=== PATIENT | female | born 1990 | race Caucasian/White ===

== ENCOUNTER 2019-04-21 11:35 | Inpatient (IN) | payer OTHER ==
[2019-04-21] MEDS ORDERED: ELECTROLYTE-148 SOLN 1,000 ML IV SCH (12:00)
[2019-04-21] MEDS ORDERED: CITRIC ACID/SODIUM CITRATE 30 ML UNIT-DOSE CUP PO ONE (12:00)
[2019-04-21 12:42] VITALS: BMI 27.9
[2019-04-21 13:06] LABS: BASO % 0.5 % (0-2.0); EOS % 0.5 % (0-4.5); HEMATOCRIT 28.5 % (32.4-45.2); HEMOGLOBIN 9.3 GM/dL (10.7-15.3); LYMPH % 13.5 % (8-40); MCH 27.6 pg (25.7-33.7); MCHC 32.7 g/dl (32.0-36.0); MEAN CELL VOLUME 84.3 fl (80-96); MEAN PLT VOLUME 10.7 fl (7.5-11.1); MONO % 5.7 % (3.8-10.2); NEUT % 79.8 % (42.8-82.8); PLATELET COUNT 137 K/MM3 (134-434); RBC 3.38 M/mm3 (3.60-5.2); RDW 14.3 % (11.6-15.6); WHITE BLOOD COUNT 10.2 K/mm3 (4.0-10.0)
[2019-04-21] MEDS ORDERED: OXYTOCIN 20 UNITS in 0.9% NS 20 UNIT/1,000 ML INFUS.BAG IV ONE ×2 (13:06→16:11)
[2019-04-21 13:22] LABS: INR 0.97 (0.83-1.09); PROTHROMBIN TIME (PATIENT) 11.4 SEC (9.7-13.0)
[2019-04-21 13:24] LABS: ACTIVATED PTT 28.2 SECONDS (25.2-36.5); BLOOD UREA NITROGEN 6.4 mg/dL (7-18); CALCIUM 8.1 mg/dL (8.5-10.1); CREATININE 0.6 mg/dL (0.55-1.3); POTASSIUM 4.2 mmol/L (3.5-5.1)
--- NOTE | 2019-04-21 13:26 | HP ---
Past Medical History - Primary Care Physician PCP:: Pritesh Howell - Admission Chief Complaint: 39 weeks, previous c/s, labor, request repeat c/s History of Present Illness: 28 yo f g 3 p0 0 1 1 39 weeks , with previous c/s in labor , cx 4 cm 80 vx -3 mi , fhr cat 1, contraction regular q 3 min, requesting repeat c/s History Source: Patient Limitations to Obtaining History: No Limitations - Past Medical History ...: 3 ...Para: 1 ...Term: 1 ...: 0 ...Spon : 0 ...Induced : 1 ...Multiple Gestation: 0 ...EDC by [facility]: 04/28/19 Heme/Onc: Yes: Anemia - Past Surgical History Past Surgical History: Yes: Hx Myomectomy: No Hx Transabdominal Cerclage: No - Smoking History Smoking history: Never smoked Have you smoked in the past 12 months: No - Alcohol/Substance Use Hx Alcohol Use: No History of Substance Use: reports: None - Social History Usual Living Arrangement: Yes: With Spouse History of Recent Travel: No Home Medications - Allergies Allergies/Adverse Reactions: Allergies Allergy/AdvReac Type Severity Reaction Status Date / Time No Known Allergies Allergy Verified 04/21/19 12:50 - Home Medications Home Medications: Ambulatory Orders Vit No.129/Iron/Folic [ One Daily Tablet] 1 tab PO DAILY Review of Systems - Review of Systems Constitutional: reports: No Symptoms Eyes: reports: No Symptoms HENT: reports: No Symptoms Neck: reports: No Symptoms Cardiovascular: reports: No Symptoms Respiratory: reports: No Symptoms Gastrointestinal: reports: No Symptoms Genitourinary: reports: No Symptoms Breasts: reports: No Symptoms Reported Musculoskeletal: reports: No Symptoms Integumentary: reports: No Symptoms Neurological: reports: No Symptoms Endocrine: reports: No Symptoms Hematology/Lymphatic: reports: No Symptoms Psychiatric: reports: No Symptoms Physical Exam - Maternity Vital Signs: Vital Signs Temperature 98.4 F 04/21/19 12:00 Pulse Rate 90 04/21/19 12:00 Respiratory Rate 18 04/21/19 12:00 Blood Pressure 129/78 04/21/19 12:00 O2 Sat by Pulse Oximetry (%) Constitutional: Yes: Well Nourished, No Distress, Calm Eyes: Yes: WNL, Conjunctiva Clear, EOM Intact HENT: Yes: WNL, Atraumatic, Normocephalic Neck: Yes: WNL, Supple, Trachea Midline Cardiovascular: Yes: WNL, Regular Rate and Rhythm Breast(s): Yes: WNL - Abdominal Exam/OB Fundal Height: 40 Number of Fetuses: Single Presentation: Vertex Contractions: Yes Regularity: Irregular Intensity: Mod/Strong Monitor Mode: External Heart Rate Location: [facility] Category: I Accelerations: Non-Uniform Decelerations: None - Vaginal Exam/OB Vaginal Bleediing: No Speculum Exam: No Dilatation (cm): 4 cm Effacement (%): 80 Amniotic Membrane Status: Bulging Presentation: Vertex/Position Station: -3 - Physical Exam Musculoskeletal: Yes: WNL Extremities: Yes: WNL Edema: Yes Edema: LLE: Trace, RLE: Trace Deep Tendon Reflex Grade: Normal +2 ...Motor Strength: WNL Psychiatric: Yes: WNL - Labs Lab Results: CBC, BMP 04/21/19 12:40 04/21/19 12:40 Hemorrhage Risk Assessment - Risk Factors Medium Risk Factors: Yes: Prior , uterine surgery,or multiple laparotomies High Risk Factors: Yes: None Risk Score: 1 Risk Level: Medium Risk Problem List - Problems (1) with 39 completed weeks gestation Code(s): Z3A.39 - 39 WEEKS GESTATION OF (2) Previous section complicating Code(s): O34.219 - MATERNAL CARE FOR UNSP TYPE SCAR FROM PREVIOUS DEL (3) Labor established Code(s): WFE9617 - Assessment/Plan plan admit , fhm requesting repeat c/s, risks discussed
[2019-04-21] MEDS ORDERED: morphine SULFATE/PF 0.5 MG/ML (2cc Syringe - QUVA) ONE (13:45)
[2019-04-21] MEDS ORDERED: PHENYLEPHRINE HCL 10 MG/1 ML SINGLE DOSE VIAL ONE (13:58)
[2019-04-21] MEDS ORDERED: ceFAZolin SODIUM 1 GM VIAL ONE (14:00)
--- NOTE | 2019-04-21 14:50 | PN ---
Progress Note (short form) - Note Progress Note: I assisted at repeat c/section for the entirety of the case.
[2019-04-21] MEDS ORDERED: diphenhydrAMINE HCL 25 MG CAPSULE (FP) PO PRN (15:04)
[2019-04-21] MEDS ORDERED: oxyCODONE HCL 5 MG TABLET PO PRN ×2 (15:04)
[2019-04-21] MEDS ORDERED: ONDANSETRON 4 MG/2 ML VIAL IVPUSH PRN (15:04)
[2019-04-21] MEDS ORDERED: METHYLERGONOVINE MALEATE 0.2 MG/1 ML AMP IM PRN (15:04)
[2019-04-21] MEDS ORDERED: BENZOCAINE 28 GM HEMORRHOIDAL OINTMENT PR PRN (15:04)
[2019-04-21] MEDS ORDERED: WITCH HAZEL 50% (TUCKS) 40 PAD/JAR PAD TP PRN (15:04)
[2019-04-21] MEDS ORDERED: BENZOCAINE 20% 57 GM BOTTLE TP PRN (15:04)
[2019-04-21] MEDS: ELECTROLYTE-148 SOLN 1,000 ML IV SCH (15:13)
[2019-04-21] MEDS ORDERED: OXYTOCIN 20 UNITS in 0.9% NS 20 UNIT/1,000 ML INFUS.BAG IV SCH (15:15)
[2019-04-21] MEDS ORDERED: IBUPROFEN 800 MG/8 ML IJ IVPB ONE (16:12)
[2019-04-21] MEDS: IBUPROFEN 800 MG/8 ML IJ IVPB PRN (16:20)
[2019-04-21] MEDS: CEFAZOLIN 1 GM/D5W 1 GM/50 ML BAG IVPB SCH (17:47)
[2019-04-22] MEDS: IBUPROFEN 800 MG/8 ML IJ IVPB PRN (00:11)
[2019-04-22] MEDS: CEFAZOLIN 1 GM/D5W 1 GM/50 ML BAG IVPB SCH (01:18)
[2019-04-22] MEDS: ACETAMINOPHEN 325 MG TABLET (FP) PO PRN ×4 (04:37→19:51)
[2019-04-22] MEDS: SIMETHICONE 80 MG TAB.CHEW (FP) PO PRN ×4 (04:37→19:50)
[2019-04-22] MEDS: IBUPROFEN 600 MG TABLET (FP) PO PRN ×4 (04:38→19:51)
[2019-04-22 07:11] LABS: BASO % 0.4 % (0-2.0); EOS % 0.6 % (0-4.5); HEMATOCRIT 25.9 % (32.4-45.2); HEMOGLOBIN 8.7 GM/dL (10.7-15.3); LYMPH % 13.5 % (8-40); MCH 28.1 pg (25.7-33.7); MCHC 33.5 g/dl (32.0-36.0); MEAN PLT VOLUME 9.4 fl (7.5-11.1); MONO % 7.4 % (3.8-10.2); NEUT % 78.1 % (42.8-82.8); PLATELET COUNT 120 K/MM3 (134-434); RBC 3.08 M/mm3 (3.60-5.2); RDW 14.2 % (11.6-15.6); WHITE BLOOD COUNT 11.1 K/mm3 (4.0-10.0)
[2019-04-22] MEDS: ENOXAPARIN NA (PORCINE) 40 MG/0.4 ML DISP.SYRIN SQ SCH (09:30)
[2019-04-22] MEDS: PRENATAL VITAMINS W/ FOLIC ACID TABLET (FP) PO SCH (10:35)
[2019-04-22] MEDS ORDERED: BISACODYL 10 MG SUPP.RECT RC PRN (15:04)
--- NOTE | 2019-04-22 16:29 | PN ---
Progress Note (short form) - Note Progress Note: pod 1 s/p repeat c/s, no c/o, no excess vaginal bleeding CBC, BMP 04/22/19 06:57 04/21/19 12:40 Last Vital Signs Temp Pulse Resp BP Pulse Ox 98.1 F 73 18 123/70 98 04/22/19 13:00 04/22/19 13:00 04/22/19 14:00 04/22/19 13:00 04/21/19 21:00 abdomen soft, no distension, no cva incision dry, clean no calf tenderness no excess vaginal bleeding impression pod 1 ,anemia , asymptomatic plan monitor VS, repeat cbc Problem List - Problems (1) with 39 completed weeks gestation Code(s): Z3A.39 - 39 WEEKS GESTATION OF (2) Previous section complicating Code(s): O34.219 - MATERNAL CARE FOR UNSP TYPE SCAR FROM PREVIOUS DEL (3) Labor established Code(s): KXJ0791 -
[2019-04-23] MEDS: SIMETHICONE 80 MG TAB.CHEW (FP) PO PRN ×4 (03:10→20:52)
[2019-04-23] MEDS: ACETAMINOPHEN 325 MG TABLET (FP) PO PRN ×4 (03:10→20:51)
[2019-04-23] MEDS: IBUPROFEN 600 MG TABLET (FP) PO PRN ×4 (03:11→20:51)
[2019-04-23] MEDS: DEXTROSE 5%-LACTATED RINGERS 1,000 ML IV SCH ×2 (03:27→03:29)
[2019-04-23] MEDS: ELECTROLYTE-148 SOLN 1,000 ML IV SCH (03:29)
--- NOTE | 2019-04-23 08:30 | PN ---
Post Progress Note - Subjective Subjective: Patient without acute complaints. Reports tolerating oral intake without nausea or vomiting. Ambulating without dizziness. Denies fevers or chills. Pain well controlled with oral pain medication. without difficulty. Passing flatus. Post Day: 2 Type of Delivery: Repeat C/S Vital Signs: Vital Signs Temperature 97.9 F 04/22/19 21:41 Pulse Rate 90 04/22/19 21:41 Respiratory Rate 20 04/22/19 21:41 Blood Pressure 116/65 04/22/19 21:41 O2 Sat by Pulse Oximetry (%) 98 04/21/19 21:00 Breast Exam: Yes: Engorged Uterus: Yes: Fundus Firm, Fundus below umbilicus, Non-tender Incision: Yes: Sutures intact, Oozing (mild). No: Redness Abdomen/GI: Yes: Abdomen soft, Passing flatus, Tolerating PO. No: Abdominal Distention, Tender Lochia: Yes: Rubra Lochia, amount: Moderate Extremities: Yes: Calves non-tender. No: Edema Activity: Ambulating - Labs Labs: CBC WBC 11.1 K/mm3 (4.0-10.0) H 04/22/19 06:57 RBC 3.08 M/mm3 (3.60-5.2) L 04/22/19 06:57 Hgb 8.7 GM/dL (10.7-15.3) L 04/22/19 06:57 Hct 25.9 % (32.4-45.2) L 04/22/19 06:57 MCV 84.0 fl (80-96) 04/22/19 06:57 MCH 28.1 pg (25.7-33.7) 04/22/19 06:57 MCHC 33.5 g/dl (32.0-36.0) 04/22/19 06:57 RDW 14.2 % (11.6-15.6) 04/22/19 06:57 Plt Count 120 K/MM3 (134-434) L 04/22/19 06:57 MPV 9.4 fl (7.5-11.1) D 04/22/19 06:57 Absolute Neuts (auto) 8.6 K/mm3 (1.5-8.0) H 04/22/19 06:57 Neutrophils % 78.1 % (42.8-82.8) 04/22/19 06:57 Lymphocytes % 13.5 % (8-40) 04/22/19 06:57 Monocytes % 7.4 % (3.8-10.2) 04/22/19 06:57 Eosinophils % 0.6 % (0-4.5) 04/22/19 06:57 Basophils % 0.4 % (0-2.0) 04/22/19 06:57 Nucleated RBC % 0 % (0-0) 04/22/19 06:57 Assessment/Plan 28 yo POD # 2 s/p repeat CD, afebrile, vital signs stable, doing well 1. Continue routine postoperative care. 2. Encourage ambulation and incentive spirometer use 3. Continue oral pain medication 4. Anticipate discharge home postoperative day #3
--- NOTE | 2019-04-23 08:33 | PN ---
Progress Note (short form) - Note Progress Note: Patient states desires circumcision for infant. Discussed risks including infection, bleeding, damage to tip of penis, and unsatisfactory result, resulting in surgical repair or repeat circumcision. Patient expressed understanding and consents to procedure. Reviewed infants chart, cleared for circumcision and normal genitalia per point of sale associate, Dr. Holt
--- NOTE | 2019-04-23 08:34 | DS ---
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 Present: Yes Name: Hannah Randle Gender: Male Weight: 8 lb 9 oz Total Hours ROM (Hrs/Mins): 2 minutes - 1 Minute Total Score: 9 5 Minutes Total Score: 9 - Feeding Plan Initial Plan: Exclusive throughout hospitalization Discharge Summary Problems reviewed: Yes Reason For Visit: REPEAT Current Active Problems Labor established (Acute) with 39 completed weeks gestation (Acute) Previous section complicating (Acute) Procedures: Principal: delivery Hospital Course: Patient was admitted in labor for routine delivery POD # 1 patient ambulated, voiding, passing gas, tolerating oral intake and with adequate pain control. Noted to have mild asymptomatic anemia She fulfilled all criteria for discharge POD #3 Condition: Good - Instructions Diet, Activity, Other Instructions: Follow up in 1 week for postop visit Physical activity Resume your normal everyday activity as tolerated no heavy lifting or exercise until seen by your surgeon. You may walk unlimited coreen of and climb stairs. You may resume driving the car when you feel safe and comfortable behind the wheel. No sexual activity as instructed. Wound care If you have a bandage, leave it on, and keep dry for 48-72 hours. After that time discard the outer bandage. If they are tapes on the skin under the out of bandage leave them in place. They will peel off in the next 7 to 10 days. Do Not Peel them off. You may shower the day after surgery. If there are tapes present on the skin, you may shower over them. Diet There are no dietary restrictions. Eat healthy, high-fiber foods. Drink 6 to 8 glasses of liquid each day. This will assist in keeping your bowels are regular. Pain management You may take Tylenol or acetaminophen or Ibuprofen (for example, Motrin, Advil etc.) from my pain prescription medication is ordered should be taken as prescribed for moderate to severe pain. Call MD for any of the following: Severe pain not relieved by medication Fever of 101 or higher Excessive bleeding or drainage on dressing Inability to urinate Referrals: Elliott Escobar MD [Staff Physician] - Disposition: HOME - Home Medications Comprehensive Discharge Medication List: Ambulatory Orders Vit No.129/Iron/Folic [ One Daily Tablet] 1 tab PO DAILY
[2019-04-23] MEDS: PRENATAL VITAMINS W/ FOLIC ACID TABLET (FP) PO SCH (09:26)
[2019-04-23] MEDS: ENOXAPARIN NA (PORCINE) 40 MG/0.4 ML DISP.SYRIN SQ SCH (09:28)
[2019-04-23] MEDS ORDERED: SENNOSIDES/DOCUSATE COMBO (SENNA PLUS) TABLET (UD) PO PRN (22:00)
[2019-04-24] MEDS: IBUPROFEN 600 MG TABLET (FP) PO PRN ×2 (04:49→11:10)
[2019-04-24] MEDS: ACETAMINOPHEN 325 MG TABLET (FP) PO PRN ×2 (04:50→11:09)
[2019-04-24 07:27] LABS: BASO % 0.3 % (0-2.0); EOS % 2.5 % (0-4.5); HEMATOCRIT 25.5 % (32.4-45.2); HEMOGLOBIN 8.5 GM/dL (10.7-15.3); LYMPH % 17.1 % (8-40); MCH 27.9 pg (25.7-33.7); MCHC 33.5 g/dl (32.0-36.0); MEAN CELL VOLUME 83.3 fl (80-96); MEAN PLT VOLUME 9.9 fl (7.5-11.1); MONO % 6.8 % (3.8-10.2); NEUT % 73.3 % (42.8-82.8); PLATELET COUNT 149 K/MM3 (134-434); RBC 3.06 M/mm3 (3.60-5.2); RDW 14.4 % (11.6-15.6); WHITE BLOOD COUNT 9.5 K/mm3 (4.0-10.0)
[2019-04-24] MEDS: PRENATAL VITAMINS W/ FOLIC ACID TABLET (FP) PO SCH (10:29)
[2019-04-24] MEDS: ENOXAPARIN NA (PORCINE) 40 MG/0.4 ML DISP.SYRIN SQ SCH (10:29)
--- NOTE | 2019-04-24 10:46 | PN ---
Post Progress Note - Subjective Subjective: Patient without acute complaints. Reports tolerating oral intake without nausea or vomiting. Ambulating without dizziness. Denies fevers or chills. Pain well controlled with oral pain medication. Passing flatus. Post Day: 3 Type of Delivery: Repeat C/S Vital Signs: Vital Signs Temperature 98.2 F 04/23/19 22:00 Pulse Rate 74 04/23/19 22:00 Respiratory Rate 18 04/23/19 22:00 Blood Pressure 128/85 04/23/19 22:00 O2 Sat by Pulse Oximetry (%) 98 04/21/19 21:00 Breast Exam: Yes: Soft Uterus: Yes: Fundus Firm, Fundus below umbilicus Incision: Yes: Sutures intact. No: Redness, Oozing Abdomen/GI: Yes: Abdomen soft, Passing flatus, Tolerating PO. No: Abdominal Distention, Tender Lochia: Yes: Rubra Lochia, amount: Moderate Extremities: Yes: Calves non-tender. No: Edema Activity: Ambulating - Labs Labs: CBC WBC 9.5 K/mm3 (4.0-10.0) 04/24/19 06:45 RBC 3.06 M/mm3 (3.60-5.2) L 04/24/19 06:45 Hgb 8.5 GM/dL (10.7-15.3) L 04/24/19 06:45 Hct 25.5 % (32.4-45.2) L 04/24/19 06:45 MCV 83.3 fl (80-96) 04/24/19 06:45 MCH 27.9 pg (25.7-33.7) 04/24/19 06:45 MCHC 33.5 g/dl (32.0-36.0) 04/24/19 06:45 RDW 14.4 % (11.6-15.6) 04/24/19 06:45 Plt Count 149 K/MM3 (134-434) D 04/24/19 06:45 MPV 9.9 fl (7.5-11.1) 04/24/19 06:45 Absolute Neuts (auto) 6.9 K/mm3 (1.5-8.0) 04/24/19 06:45 Neutrophils % 73.3 % (42.8-82.8) 04/24/19 06:45 Lymphocytes % 17.1 % (8-40) D 04/24/19 06:45 Monocytes % 6.8 % (3.8-10.2) 04/24/19 06:45 Eosinophils % 2.5 % (0-4.5) D 04/24/19 06:45 Basophils % 0.3 % (0-2.0) 04/24/19 06:45 Nucleated RBC % 0 % (0-0) 04/24/19 06:45 Assessment/Plan 28 yo POD # 3 s/p repeat CD, afebrile, vital signs stable, asymptomatic anemia, doing well 1. Patient stable for discharge home today. 2. Patient encouraged to contact MD for: - Severe pain not controlled by oral pain medication - Fevers or chills - Nausea or vomiting, intolerance of oral intake - Incision redness, tenderness or discharge 3. Patient to follow up in office in 1-2 weeks for incision check, 4-6 weeks for visit
[2019-04-24] MEDS: SIMETHICONE 80 MG TAB.CHEW (FP) PO PRN (11:09)
[2019-04-24 15:00] VITALS: BP 121/73; PULSE 84; TEMP 98.5
--- NOTE | 2019-04-25 15:51 | OP ---
DATE OF OPERATION: 04/21/2019 PREOPERATIVE DIAGNOSIS: at 39 weeks, previous section in labor, request of repeat section. POSTOPERATIVE DIAGNOSIS: at 39 weeks, previous section in labor, request of repeat section. PROCEDURE: Repeat low segment transverse section. SURGEON: Pritesh Howell MD CUSTOMER SUPPORT ANALYST: Issa Potter MD ANESTHESIA: Spinal. ESTIMATED BLOOD LOSS: 500 mL. FINDINGS: Live baby boy, Apgars 9 and 9, ROT position. OPERATION: Patient was taken to the operating room where after adequate spinal anesthesia abdomen and perineum were prepped and draped. Pfannenstiel abdominal skin incision was made. Abdominal wall was cut layer by layer until the peritoneum was exposed and incised. Upon entry to the abdominal cavity, lower uterine segment was identified and uterovesical fold of peritoneum was established. Bladder was pushed down. The low transverse uterine incision was made. Incision was extended laterally with bandage scissors. Amniotic sac was entered, clear fluid. Head was delivered. Nose and sinuses were suctioned. Live baby boy was delivered without any difficulty. Placenta was delivered manually. Uterine cavity was cleaned of all remaining tissue. Uterine incision was closed with 0 Biosyn continuous suture in the first layer and then uterine scar was closed with a second layer with 0 Biosyn continuous suture. The bladder flap was closed with 0 Biosyn continuous suture. Both tubes and ovaries were checked and were normal. No active bleeding was seen. All of the lap pad, sponge, and instrument counts were correct. The peritoneum was closed with 0 Biosyn continuous suture. Muscles were brought together with interrupted suture of 0 Biosyn. Fascia was closed with 0 Biosyn continuous suture, subcutaneous fat with interrupted suture of 0 Biosyn, and the skin was closed with 3-0 Vicryl continuous subcuticular suture. Patient tolerated the procedure well and left the OR in good condition. Gaye [id number]
--- NOTE | 2019-04-26 17:12 | PATH ---
Surgical Pathology Report Patient Name: DYLAN SARAH Med. Rec. #: [id number] /Age/Gender: 1990 (Age: 28) / F Account: [id number] Location: [facility] Taken: 04/21/2019 Received: 04/22/2019 Reported: 04/26/2019 Physicians: Pritesh Howell M.D. Specimen(s) Received PLACENTA Clinical History previous , induced AB x1, in labor 39 weeks gestation Final Diagnosis PLACENTA: THIRD TRIMESTER PLACENTA. TRIVASCULAR CORD. MEMBRANES WITH NO DIAGNOSTIC ABNORMALITIES. Electronically Signed Cecily Spencer M.D. Gross Description The specimen is received fresh labeled placenta and is a 482 gram, 20.5 x 15.5 x 2.0 cm. placenta with attached membranes and umbilical cord. The attached membranes are mendoza, translucent with focal opacities and insert marginally. The umbilical cord measures 16 cm. in length and averages 1.1 cm. in diameter. The cord inserts eccentrically, 3.5 cm. to the nearest margin. No true knots or strictures are identified. Cut surface of the umbilical cord reveals 3 vessels. The surface is perez-blue with minimal fibrin deposition and appropriate caliber vessels. The maternal surface is red-brown with focal defects. Sectioning reveals red-brown, spongy parenchyma. No lesions are identified. Laboratory Associate sections are submitted in three cassettes as follows: 1- membrane rolls and umbilical cord; 2-3- full thickness sections of placenta. /04/22/2019 saudi/04/22/2019
== END 2019-04-24 13:40 | disposition home or self-care (01) | DRG 540 ==
LOC: JDEL 11:35 → JLDR 12:00 → J3W 16:54
PROVIDERS: ADMIT Obstetrics & Gynecology; ATTEND Obstetrics & Gynecology
PROC: 10D00Z1 Extraction of Products of Conception, Low, Open Approach (ICD-10-PCS; principal; 2019-04-21)
DX: O34.211 Maternal care for low transverse scar from previous cesarean delivery (principal); O99.02 Anemia complicating childbirth; D64.9 Anemia, unspecified; Z3A.39 39 weeks gestation of pregnancy; Z37.0 Single live birth
CPT/HCPCS: 36415; 36600; 80048; 82803; 85025; 85610; 85730; 86593; 86850; 86900; 86901; 88307-TC